=== PATIENT | female | born 1960 | race Caucasian/White ===

== ENCOUNTER → 2018-07-26 11:00 | Outpatient (CLI) | payer OTHER, SELFPAY ==
[2018-07-29 12:17] LABS: HPV Reflexed? NOT INDICATED
== END ==
PROVIDERS: Visit Provider Obstetrics & Gynecology
DX: Z12.4 Encounter for screening for malignant neoplasm of cervix (principal)
CPT/HCPCS: 87624; 88175; G0145

== ENCOUNTER → 2020-12-24 11:10 | Outpatient (CLI) | payer OTHER, SELFPAY ==
[2020-12-30 12:31] LABS: HPV Reflexed? NOT INDICATED
== END ==
PROVIDERS: Visit Provider Obstetrics & Gynecology
DX: Z12.4 Encounter for screening for malignant neoplasm of cervix (principal)
CPT/HCPCS: 88175; G0145